=== PATIENT | male | born 1965 | race Two or more races ===

== ENCOUNTER 2016-10-27 00:47 | Emergency (ER) | payer SELFPAY ==
[~2016-10-27] VITALS: Ht 188 cm; Wt 79.4 kg
[2016-10-27 01:04] VITALS: BP 174/109
[2016-10-27] MEDS ORDERED: ACETAMINOPHEN 325 MG TAB PO ONE ×2 (03:45→04:00)
[2016-10-27] MEDS ORDERED: FLUORESCEIN SOD 1 MG TEST STRIP ONE (04:26)
[2016-10-27] MEDS ORDERED: FLUORESCEIN SOD 1 MG TEST STRIP EACHEYE ONE (04:45)
[2016-10-27] MEDS ORDERED: TETRACAINE HCL 0.5% OPTH(EYE) SOLN 2ML EACHEYE ONE (04:45)
== END 2016-10-27 05:20 | disposition home or self-care (01) ==
LOC: ER 00:51
DX: T15.02XA Foreign body in cornea, left eye, initial encounter (principal); W45.8XXA Other foreign body or object entering through skin, initial encounter; Y93.89 Activity, other specified; Y99.8 Other external cause status; Y92.89 Other specified places as the place of occurrence of the external cause
CPT/HCPCS: 65220

== ENCOUNTER 2024-02-20 17:03 | Emergency (ER) | payer MEDICAID ==
[~2024-02-20] VITALS: Ht 185.4 cm; Wt 135.1 kg
[2024-02-20 19:04] LABS: Basophils # (auto) 0.1 10 ^3/uL (0-0.2); Basophils % (auto) 0.7 % (0.0-2.0); Eosinophils # (auto) 0.5 10 ^3/uL (0-0.8); Eosinophils % (auto) 4.6 % (0.0-7.0); Hematocrit 36.3 % (41.0-53.0); Hemoglobin 11.9 g/dL (13.5-17.5); Lymphocytes # (auto) 1.6 10 ^3/uL (0.4-5.4); Lymphocytes % (auto) 16.1 % (10.0-50.0); Mean Corpuscular Hemoglobin 27.7 pg (28.0-32.0); Mean Corpuscular Hgb Conc. 32.9 g/dL (32.0-36.0); Mean Corpuscular Volume 84.3 fL (80.0-100.0); Monocytes % (auto) 9.9 % (0.0-12.0); Neutrophils # (auto) 6.8 10 ^3/uL (1.6-8.6); Neutrophils % (auto) 68.7 % (37.0-80.0); Red Blood Cells 4.31 10^6/uL (4.5-5.90); Red Cell Distribution Width 13.8 % (11.8-14.3); White Blood Cell 9.9 10^3/uL (4.4-10.8)
[2024-02-20 19:22] LABS: INR 1.06 (0.9-1.15); Partial Thromboplastin Time 28.8 SEC (24.5-34.5); Prothrombin Time 11.2 sec (9.3-11.8)
[2024-02-20 19:26] LABS: Alanine Aminotransferase 19 U/L (7-40); Albumin 3.7 g/dL (3.2-4.8); Alkaline Phosphatase 86 U/L (46-116); Anion Gap 7 (5-15); Aspartate Aminotransferase 20 U/L (13-40); BUN/Creatinine Ratio 20.7 (10.0-20.0); Blood Urea Nitrogen 17 mg/dL (9-23); Calcium 9.3 mg/dL (8.7-10.4); Carbon Dioxide 27 mmol/L (20-30); Chloride 106 mmol/L (98-107); Glucose 97 mg/dL (74-106); Potassium 4.4 mmol/L (3.5-5.1); Sodium 140 mmol/L (136-145)
[2024-02-20 19:27] LABS: Bilirubin, Total 0.9 mg/dL (0.2-1.0); Total Protein 6.2 g/dL (5.7-8.2)
[2024-02-20 19:35] LABS: Erythrocyte Sedimentation Rate 39 mm/hr (0-20)
[2024-02-20 19:57] LABS: CRP High Sensitivity 4.69 mg/dL (<1.0)
[2024-02-20] MEDS: IOHEXOL 350 MG/ML 100ML IJ ONE (20:36)
[2024-02-20 21:27] VITALS: BP 142/82; PULSE 85; RESP 20; TEMP 97.8; O2SAT 97
[2024-02-20] MEDS ORDERED: CLIN1CAP70 PO (21:54)
[2024-02-20] MEDS ORDERED: IOHEXOL 350 MG/ML 100ML IJ ONE (22:45)
== END 2024-02-20 21:58 | disposition home or self-care (01) ==
LOC: ER 17:03
DX: L03.116 Cellulitis of left lower limb (principal); I82.402 Acute embolism and thrombosis of unspecified deep veins of left lower extremity
CPT/HCPCS: 36415; 71275; 80053; 84484; 85025; 85610; 85652; 85730; 86141; 93970; 99285; Q9967

== ENCOUNTER 2024-02-26 19:08 | Emergency (ER) | payer MEDICAID ==
[~2024-02-26] VITALS: Ht 185.4 cm; Wt 131.8 kg
[~2024-02-26 19:08] MED LIST: CLIN1CAP70 PO
[2024-02-26] MEDS ORDERED: HYDR-4072 PO (23:39)
[2024-02-26] MEDS ORDERED: CEPH250C PO (23:39)
[2024-02-27] MEDS: HYDROcodone-ACET 10/325MG TAB PO ONE (00:17)
[2024-02-27] MEDS: KETOROLAC TROMETH 60MG/2ML VIAL IM ONE (00:18)
[2024-02-27 00:27] VITALS: BP 109/78; PULSE 84; RESP 16; TEMP 98.7; O2SAT 94
== END 2024-02-27 01:00 | disposition home or self-care (01) ==
LOC: ER 19:08
DX: L03.116 Cellulitis of left lower limb (principal); I10 Essential (primary) hypertension; Z98.890 Other specified postprocedural states; Z79.899 Other long term (current) drug therapy
CPT/HCPCS: 73562; 93971; 96372; 99285; J1885

== ENCOUNTER 2024-04-22 12:44 | Inpatient (IN) | payer MEDICAID ==
[~2024-04-22] VITALS: Ht 193 cm; Wt 127.7 kg
[~2024-04-22 12:44] MED LIST changes: +CEPH250C PO; +HYDR-4072 PO
[2024-04-22] MEDS: TETANUS-DIPTH-ACEL PERTUSSIS 0.5ML SYR Tdap IM ONE (13:45)
[2024-04-22] MEDS: HYDROcodone-ACET 10/325MG TAB PO ONE (14:07)
[2024-04-22] MEDS: PIPERACILLIN-TAZO 4.5GM 100 ML IV ONE (14:13)
[2024-04-22 14:23] LABS: Basophils # (auto) 0.1 10 ^3/uL (0-0.2); Basophils % (auto) 1.2 % (0.0-2.0); Eosinophils # (auto) 0.3 10 ^3/uL (0-0.8); Eosinophils % (auto) 3.5 % (0.0-7.0); Hematocrit 41.6 % (41.0-53.0); Hemoglobin 13.8 g/dL (13.5-17.5); Lymphocytes % (auto) 25.5 % (10.0-50.0); Mean Corpuscular Hemoglobin 27.1 pg (28.0-32.0); Mean Corpuscular Hgb Conc. 33.3 g/dL (32.0-36.0); Mean Corpuscular Volume 81.4 fL (80.0-100.0); Monocytes # (auto) 0.6 10 ^3/uL (0-1.3); Monocytes % (auto) 7.6 % (0.0-12.0); Neutrophils # (auto) 4.9 10 ^3/uL (1.6-8.6); Neutrophils % (auto) 62.2 % (37.0-80.0); Nucleated Red Blood Cells % 0.1 %; Red Cell Distribution Width 14.6 % (11.8-14.3); White Blood Cell 7.9 10^3/uL (4.4-10.8)
[2024-04-22 14:33] LABS: Chloride 102 mmol/L (98-107); Potassium 4.4 mmol/L (3.5-5.1); Sodium 135 mmol/L (136-145)
[2024-04-22 14:34] LABS: Anion Gap 7 (5-15); Calcium 9.9 mg/dL (8.7-10.4); Carbon Dioxide 26 mmol/L (20-30)
[2024-04-22 14:39] LABS: BUN/Creatinine Ratio 11.8 (10.0-20.0); Blood Urea Nitrogen 13 mg/dL (9-23); Glucose 110 mg/dL (74-106)
[2024-04-22 16:11] VITALS: PULSE 84; RESP 14; O2SAT 97
[2024-04-22] MEDS ORDERED: NITROGLYCERIN 0.4 MG SL TAB SL PRN (17:15)
[2024-04-22] MEDS ORDERED: ONDANSETRON HCL 4 MG/2 ML VIAL IV PRN (17:15)
[2024-04-22] MEDS ORDERED: DOCUSATE SOD 100 MG CAP PO PRN (17:15)
[2024-04-22] MEDS ORDERED: VANCOMYCIN PER PHARMACY 0 MG IV SCH (17:15)
[2024-04-22] MEDS ORDERED: MORPHINE SULFATE INJ 2 MG/ml SYRG IV PRN (17:15)
[2024-04-22] MEDS: VANCOMYCIN 1GM/200ML 200 ML IV SCH (17:56)
[2024-04-22] MEDS: diphenhdrAMINE HCL 50 MG/1 ML VL IV ONE (18:28)
[2024-04-22] MEDS: SODIUM CHLORIDE 0.9% 1,000 ML IV SCH (21:05)
[2024-04-22] MEDS: MORPHINE SULFATE INJ 2 MG/ml SYRG IV PRN (21:11)
[2024-04-23 07:41] LABS: Basophils # (auto) 0.1 10 ^3/uL (0-0.2); Hemoglobin 12.3 g/dL (13.5-17.5); Monocytes # (auto) 0.6 10 ^3/uL (0-1.3)
[2024-04-23 07:44] LABS: Basophils % (auto) 1.2 % (0.0-2.0); Eosinophils # (auto) 0.4 10 ^3/uL (0-0.8); Eosinophils % (auto) 5.7 % (0.0-7.0); Hematocrit 36.8 % (41.0-53.0); Lymphocytes # (auto) 1.7 10 ^3/uL (0.4-5.4); Lymphocytes % (auto) 24.9 % (10.0-50.0); Mean Corpuscular Hemoglobin 27.2 pg (28.0-32.0); Mean Corpuscular Hgb Conc. 33.5 g/dL (32.0-36.0); Mean Corpuscular Volume 81.1 fL (80.0-100.0); Monocytes % (auto) 9.4 % (0.0-12.0); Neutrophils % (auto) 58.8 % (37.0-80.0); Red Blood Cells 4.54 10^6/uL (4.5-5.90); Red Cell Distribution Width 14.8 % (11.8-14.3); White Blood Cell 6.8 10^3/uL (4.4-10.8)
[2024-04-23 07:53] VITALS: BP 128/81; PULSE 94; RESP 18; TEMP 98.1; O2SAT 94
[2024-04-23 07:54] LABS: Alanine Aminotransferase 10 U/L (7-40); Alkaline Phosphatase 96 U/L (46-116); Anion Gap 5 (5-15); Aspartate Aminotransferase 15 U/L (13-40); BUN/Creatinine Ratio 18.8 (10.0-20.0); Blood Urea Nitrogen 15 mg/dL (9-23); Calcium 9.3 mg/dL (8.7-10.4); Carbon Dioxide 26 mmol/L (20-30); Chloride 102 mmol/L (98-107); Glucose 107 mg/dL (74-106); Potassium 4.7 mmol/L (3.5-5.1); Sodium 133 mmol/L (136-145)
[2024-04-23 07:55] LABS: Bilirubin, Total 0.4 mg/dL (0.2-1.0); Total Protein 7.7 g/dL (5.7-8.2)
[2024-04-23] MEDS ORDERED: LISI40TA16 PO (08:59)
[2024-04-23] MEDS: ENOXAPARIN SOD 40 MG/0.4 ML SYRINGE SC SCH (09:16)
[2024-04-23 13:00] VITALS: BP 130/77; PULSE 84; RESP 20; TEMP 97.8; O2SAT 95
[2024-04-23 17:00] VITALS: BP 113/82; PULSE 93; RESP 20; TEMP 98.5; O2SAT 97
[2024-04-23] MEDS: AMPICILLIN & SULBACTAM SODIUM 3 GM in SODIUM CHL 0.9% 100 ML IV SCH (20:50)
[2024-04-23 21:00] VITALS: BP 139/139; PULSE 82; RESP 18; TEMP 97.9; O2SAT 95
[2024-04-23] MEDS: OXYCODONE W/ ACETAMINOPHEN 5/325MG TABLET PO PRN (23:09)
[2024-04-24 01:00] VITALS: BP 114/85; PULSE 63; RESP 19; TEMP 98.6; O2SAT 93
[2024-04-24 05:00] VITALS: BP 125/77; PULSE 95; RESP 17; TEMP 98.5; O2SAT 92
[2024-04-24 08:25] VITALS: BP 117/74; PULSE 79; RESP 19; TEMP 97.6; O2SAT 98
[2024-04-24 11:38] VITALS: BP 125/76; PULSE 85; RESP 18; TEMP 97.9; O2SAT 96
[2024-04-24] MEDS: VANCOMYCIN 1GM/200ML 200 ML IV SCH (14:20)
[2024-04-24 17:00] VITALS: BP 129/81; PULSE 85; RESP 17; TEMP 98.6; O2SAT 96
[2024-04-24 21:02] VITALS: BP 130/78; PULSE 96; RESP 20; TEMP 98.5; O2SAT 95
[2024-04-25 01:23] VITALS: BP 139/88; PULSE 89; RESP 20; TEMP 98.4; O2SAT 94
[2024-04-25 05:13] VITALS: BP 135/97; PULSE 87; RESP 20; TEMP 98.4; O2SAT 97
[2024-04-25 08:15] VITALS: BP 162/90; PULSE 83; RESP 16; TEMP 98.4; O2SAT 94
[2024-04-25 12:00] VITALS: BP 121/69; PULSE 78; RESP 16; TEMP 97.5; O2SAT 98
[2024-04-25] MEDS: VANCOMYCIN 1GM/200ML 200 ML IV SCH (16:57)
[2024-04-25 17:24] VITALS: BP 121/78; PULSE 81; RESP 16; TEMP 98.7; O2SAT 98
[2024-04-25 21:00] VITALS: BP 136/76; PULSE 92; RESP 18; TEMP 97.7; O2SAT 96
[2024-04-26 01:00] VITALS: BP 139/91; PULSE 83; RESP 18; TEMP 98; O2SAT 97
[2024-04-26 05:00] VITALS: BP 144/97; PULSE 87; RESP 20; TEMP 98; O2SAT 94
== END 2024-04-26 09:21 | disposition left against medical advice (07) | DRG 383 ==
LOC: ER 12:44 → OVERFLOW 17:15 → CENTRAL 04-23 08:00
PROVIDERS: ADMIT Nurse Practitioner Family; ATTEND Nurse Practitioner Acute Care
DX: L03.115 Cellulitis of right lower limb (principal); E66.9 Obesity, unspecified; I10 Essential (primary) hypertension; Z79.891 Long term (current) use of opiate analgesic; Z79.899 Other long term (current) drug therapy; Z23 Encounter for immunization; Z68.33 Body mass index [BMI] 33.0-33.9, adult
CPT/HCPCS: 36415; 73590; 80048; 80053; 80202; 82565; 83605; 85025; 87040; 90715; 93971; G0378; J2543

== ENCOUNTER 2025-03-20 07:45 | Day surgery (SDC) | payer MEDICAID ==
[~2025-03-20] VITALS: Ht 185.4 cm; Wt 122.5 kg
[~2025-03-20 07:45] MED LIST changes: +ASCO500T11 GT; -CEPH250C PO; -CLIN1CAP70 PO; +CYAN-17 PO; -HYDR-4072 PO; +LOSA-534 PO; +MULT1CHW76 PO; +OMEG306C OR; +PHYT100T PO
--- NOTE | 2025-03-20 08:47 | DVHHP2 ---
GI H&P Pre-Op Assessment Date: 03/20/25 Chief complaint: Blood in stool HPI: per clinic note Past medical history: per clinic note Past surgical history: per clinic note Family history: per clinic note Physical exam: General: NAD, AAOX3 HEENT: PERRL, no scleral icterus, normal hearing, gums without lesions or bl eeding, oropharynx clear without erythema or exudate. Neck: Supple without enlargement of the thyroid, or lymphadenopathy. Chest: Normal size and shape, no tenderness, lung garcia clear to auscultation and percussion, nonlabored breathing. Heart: RRR, no murmur Abdomen: non-distended, no tenderness to palpation, +BS, no hepatosplenomegaly Extremities: no edema Neurological: CN II-XII intact, sensation intact in all extremities, 5+ strength in all extremities Skin: No rashes, No jaundice Assessment: - blood in stool Plan: - Colonoscopy - Risks (bleeding, infection, perforation, reaction to sedation medications and cardiopulmonary arrest) and benefit of the procedure were explained to patient. Patient agrees to undergo the procedure. RAVINDER ANGELES MD Mar 20, 2025 08:47
[2025-03-20] MEDS ORDERED: MIDAZOLAM HCL 2MG/2ML 2ml VIAL (1mg/ml) ONE (09:16)
[2025-03-20] MEDS ORDERED: fentaNYL CITRATE 100 MCG/2 ML VL ONE (09:16)
[2025-03-20] MEDS ORDERED: PROPOFOL 10 MG/ML 20 ML IV ONE (09:22)
[2025-03-20] MEDS ORDERED: DexAMETHasone SOD PHOS 10MG/1ML VIAL INJ ONE (09:22)
[2025-03-20] MEDS ORDERED: KETAMINE 50mg/ML 1ml syringe ONE (09:23)
--- NOTE | 2025-03-20 09:39 | DVHOP2 ---
Operative Report DATE OF OPERATION: 03/20/25 PROCEDURE: Colonoscopy. PREOPERATIVE INDICATION: The patient is a 59 -year-old male undergoing colonoscopy for blood in stool. POSTOPERATIVE DIAGNOSES: 1. Numerous diverticulosis in the left colon. 2. Internal hemorrhoids PROCEDURE PERFORMED BY: Seven Cordero M.D. SCOPE: Olympus videocolonoscope. ASA CLASS: 3 PREOPERATIVE MEDICATIONS: MAC with Dr Rivas PROCEDURE IN DETAIL: After obtaining an informed consent, the patient was placed on left lateral decubitus position. He was then sedated with the above medications. A rectal examination was performed that was normal. The colonoscope was then passed through the anus into the rectosigmoid and through the descending, transverse, and ascending colon up to the cecum with visualization of the appendiceal orifice, base of the cecum and the ileocecal valve. No mass or polyp was observed. There was numerous diverticulosis in the left colon. There were internal hemorrhoids. The colonoscope was then withdrawn. The patient tolerated the procedure well without difficulty. WITHDRAWAL TIME: 8 minutes QUALITY OF THE PREP: [place] Bowel Prep score: 6 COMPLICATIONS : None SPECIMENS: None DISPOSITION: D/C to home PLAN: 1. Repeat colonoscopy in 10 years for colon cancer screening. SEVEN CORDERO MD Mar 20, 2025 09:39
--- NOTE | 2025-03-20 09:40 | DVHDS2 ---
Physician Discharge Progress N Final Diagnosis: Diverticulosis, internal hemorrhoids Operations or Procedures: Operations or Procedures Colonoscopy Condition on Discharge: Good Disposition: Home Discharge Instructions: Diet: Regular Activity: No Restrictions, As Tolerated Medications: Resume previous home medications Follow Up Care: Discharge Statement: "Patient was advised to return to the ER or call 911 if any headaches, dizziness, shortness of breath, chest pain, abdominal pain, bleeding, fevers, or worsening of medical condition. Patient was counseled about treatment plan, medications, possible side effects, patientverbalized understanding. All questions were answered to the best of my ability. This discharge took greater then 30 minutes in planning, reviewing doc umentation, counseling the patient, and discussing with other team members." RAVINDER ANGELES MD Mar 20, 2025 09:40
[2025-03-20 09:45] VITALS: PULSE 86; RESP 13; O2SAT 95
[2025-03-20 10:05] VITALS: BP 143/95; PULSE 78; RESP 15; O2SAT 98
== END 2025-03-20 10:15 | disposition home or self-care (01) ==
LOC: GI 07:45
PROVIDERS: ATTEND Internal Medicine Gastroenterology
DX: K92.1 Melena (principal); K57.30 Diverticulosis of large intestine without perforation or abscess without bleeding; K64.8 Other hemorrhoids; I10 Essential (primary) hypertension; G47.33 Obstructive sleep apnea (adult) (pediatric); E66.9 Obesity, unspecified; Z68.35 Body mass index [BMI] 35.0-35.9, adult; Z79.899 Other long term (current) drug therapy; Z86.2 Personal history of diseases of the blood and blood-forming organs and certain disorders involving the immune mechanism; Z96.653 Presence of artificial knee joint, bilateral; Z98.84 Bariatric surgery status
CPT/HCPCS: 45378; J1100; J2250; J2704; J3010; J7030

== ENCOUNTER 2025-03-28 20:44 | Emergency (ER) | payer MEDICAID | END 2025-03-28 20:45 | disposition left against medical advice (07) | LOC: ER 20:44 | DX: R51.9 Headache, unspecified (principal); R53.1 Weakness; Z53.21 Procedure and treatment not carried out due to patient leaving prior to being seen by health care provider ==